=== PATIENT | female | born 1935 | race Caucasian/White ===

== ENCOUNTER 2018-12-29 17:55 | Inpatient (IN) | payer OTHER ==
[~2018-12-29] VITALS: Ht 147.3 cm; Wt 54.6 kg
--- NOTE | 2018-12-29 18:00 | NUR ---
Patient to ER bed 07 to gown for evaluation. Side rails up.
[2018-12-29 18:12] VITALS: BP_SYST 147
[2018-12-29] MEDS ORDERED: MORPHINE 2 MG/ML INJ. SYRINGE IVP ONE ×3 (18:15→23:15)
--- NOTE | 2018-12-29 18:15 | NUR ---
ER at bedside examining patient.
--- NOTE | 2018-12-29 18:15 | NUR ---
Patient arrived via BLS ambulance for c/c of left hip pain. Patient AAOx4, and laying in semi prone position. Patient states she was walking and holding a plate, she went to turn and her foot got stuck. Patient states she fell, no head strike, and no LOC. Patient states pain is 10/10 to left hip and left shoulder soreness. Decreased range of motion to left hip. +2 PT and DP pulses noted to affected leg. Capillary refill <3 seconds. Patient has no rotation of the extremity noted, patient has no bruising noted. Pain with palpation. Patient is calm and cooperative. Patient changed into a gown, and placed on playground monitor.
--- NOTE | 2018-12-29 18:30 | NUR ---
# 20 gauge angiocath placed to left forearm. Use of asceptic technique. Opsite placed over site. Blood return noted. Unable to draw blood. Flushed with 10 cc of normal saline. No evidence of infiltration noted. Patient tolerated well.
--- NOTE | 2018-12-29 19:15 | NUR ---
Care endorsed to BLANCO Colunga. Per MD Cartagena, patient has hip fracture.
--- NOTE | 2018-12-29 19:15 | NUR ---
Pt AAOx3, VSS. No needs verbalized at this time. Pts daughter at bedside.
[2018-12-29 20:11] LABS: BASOPHILS # (AUTO) 0.1 K/uL (0.0-0.2); BASOPHILS % (AUTO) 0.4 % (0.0-2.0); EOSINOPHILS # (AUTO) 0.2 K/uL (0.0-0.4); EOSINOPHILS % (AUTO) 1.4 % (0.0-4.0); HEMATOCRIT 42.6 % (36-48); HEMOGLOBIN 14.4 g/dL (12.0-16.0); LYMPHOCYTES # (AUTO) 1.5 K/uL (1.0-5.5); LYMPHOCYTES % (AUTO) 12.7 % (20.5-51.5); MEAN CORPUSCULAR HEMOGLOBIN 31 pg (27-31); MEAN CORPUSCULAR HGB CONC 34 % (32-36); MEAN CORPUSCULAR VOLUME 91 fL (79.0-98.0); MONOCYTES # (AUTO) 0.6 K/uL (0.0-1.0); MONOCYTES % (AUTO) 4.9 % (1.7-9.3); NEUTROPHILS # (AUTO) 9.7 K/uL (1.8-7.7); NEUTROPHILS % (AUTO) 80.6 % (40.0-70.0); PLATELET COUNT (AUTO) 205 K/uL (130-430); RED CELL DISTRIBUTION WIDTH 13.2 % (9.0-15.0)
[2018-12-29 20:22] LABS: ANION GAP 10 (5-15); CALCIUM 9.5 mg/dL (8.4-11.0); CHLORIDE 103 mmol/L (98-107); CREATININE 0.93 mg/dL (0.55-1.30); GLUCOSE 99 mg/dL (70-99); POTASSIUM 3.8 mmol/L (3.5-5.1); SODIUM SERUM 138 mmol/L (136-145); UREA NITROGEN, BLOOD 19 mg/dL (8-21)
[2018-12-29 20:26] LABS: PROTHROMBIN TIME 10.5 SECS (9.5-12.5)
[2018-12-29 20:28] LABS: ALANINE AMINOTRANSFERASE 18 U/L (12-78); ALBUMIN 3.6 g/dL (3.4-4.8); ASPARTATE AMINOTRANSFERASE 26 U/L (10-37); TOTAL BILIRUBIN 0.5 mg/dL (0.0-1.0)
--- NOTE | 2018-12-29 20:30 | NUR ---
Pt resting quietly, even and non-labored respirations, VSS, NAD. No needs verbalized at this time.
--- NOTE | 2018-12-29 22:00 | NUR ---
Pt alert and responsive, even and non-labored respirations, VSS, NAD. No needs verbalized at this time. Daughter at bedside.
--- NOTE | 2018-12-30 00:51 | NUR ---
Pt c/o Left hip pain 08/14. Pt medicated with Morphine.
--- NOTE | 2018-12-30 01:00 | NUR ---
Pts daughter states that pt takes Plavix for A-fib, but dosage unknown. She states that she will bring in home medication list tomorrow morning.
--- NOTE | 2018-12-30 01:10 | NUR ---
# 16 FR Muñoz catheter with use of sterile technique. Immediate return of 200 cc clear yellow urine noted. Bedside drainage bag placed below level of bladder. Urine sample collected and sent to lab. Pt tolerated procedure fair. Patient unable to toilet self r/t left hip fracture.
--- NOTE | 2018-12-30 01:39 | NUR ---
Patient will be admitted to care of Dr. Rae. Admitted to Tele unit. Will go to room 124A. Belongings list completed. Complete and up to date summary report printed. Report to be given at bedside with opportunity for questions.
--- NOTE | 2018-12-30 02:05 | NUR ---
Pt c/o Left Hip pain at 08/14. Pt to be medicated with Morphine 1 mg IVP per admit orders prior to taking to Tele unit.
[2018-12-30] MEDS: MORPHINE 2 MG/ML INJ. SYRINGE IVP PRN ×2 (02:08→20:37)
[2018-12-30 02:21] LABS: BILIRUBIN,URINE NEGATIVE (NEGATIVE); CLARITY/URINE CLEAR (CLEAR); COLOR,URINE YELLOW (YELLOW); GLUCOSE,URINE NEGATIVE (NEGATIVE); KETONES,URINE 1+ (NEGATIVE); LEUKOCYTE ESTERASE ,URINE NEGATIVE (NEGATIVE); NITRITE, URINE NEGATIVE (NEGATIVE); PROTEIN URINE NEGATIVE (NEGATIVE); UROBILINOGEN,URINE 0.2 (0.2-1.0)
[2018-12-30 02:25] LABS: BLOOD, URINE TRACE (NEGATIVE)
[2018-12-30 02:45] VITALS: BP_SYST 124
--- NOTE | 2018-12-30 02:45 | NUR ---
pt.arrived via the er-dept.dtr. accompanied the pt.pt.presents fx;lt.hip.pt.presents colby cath.pt.presents iv access;intact; patent. pt.presents language barrier;extant;indonesian:pt's primary language.diet status;regular.no requests per pt.posited@this hour. general status stable.respiratory status stable;unlabored@room air;02-sat%=98%.i have assessed the v/s;values w/in normal limits. pt.presents colby cath.intact;patent;urine content present.call light/telephone placed w/in the reach of the pt.
[2018-12-30] MEDS: HEPARIN SODIUM,PORCINE 5000 UNITS/ML VIAL SUBCUT SCH ×3 (03:00→20:31)
--- NOTE | 2018-12-30 03:07 | NUR ---
Consultation Paged Reason for Consultation: Left Hip Fracture Was consult called: Y Person who was notified: Hannah Consulting Physician: Dr. Carrero (Dr. Rodriguez is precision assembler bench) Litigation Legal Secretary Ordering Physician: Dr. Rae
[2018-12-30 03:21] LABS: BACTERIA,URINE FEW /HPF (None Seen); WBC,URINE 0-3 /HPF (0-3)
[2018-12-30] MEDS: NACL 0.9% 1,000 ML IV SCH ×2 (03:43→17:30)
--- NOTE | 2018-12-30 04:00 | NUR ---
pt.assessed.pt.presents quiescent affect;calm.no requests posited@this hour.pt.repositioned.i have apprised the pt.that morphine is ordered and is due @0600a but, if required, i would page the md.pt.stated she is comfortable.i have completed the admission data collection;dtr has assisted w/providing pt's' responses:data/info collection..i have initiated the administration of iv fluids;heparin has been ordered.i am to hole the heparin;pt.possible surgery:12/30/18;truong is consulted for the case.general status stable.respiratory status stable;unlabored.call light.telephone placed w/in reach of the pt.
--- NOTE | 2018-12-30 04:04 | NUR ---
Consultation Paged Reason for Consultation: A-Fib Was consult called: Y Person who was notified: Hannah Consulting Physician: Dr. Bourne [employer] Architect Ordering Physician: Dr. Rae
--- NOTE | 2018-12-30 06:00 | NUR ---
pt.assessed.pt.presents quiescent affect;calm,somnolent.no c/o pain,nausea.iv fluids infusing.colby cath intact;patent;urine content present. no requests posited@this hour.pt.repositioned.general status stable.respiratory status stable;unlabored.i have collected the mrsa;nares sample.call light/telephone w/in the reach of the pt.
[2018-12-30] MEDS ORDERED: MORPHINE 2 MG/ML INJ. SYRINGE IVP PRN (06:30)
[2018-12-30] MEDS ORDERED: ONDANSETRON HCL 4 MG/2 ML VIAL IVP PRN (06:30)
[2018-12-30] MEDS ORDERED: MAGNESIUM SULFATE 50 ML IV PRN (06:30)
[2018-12-30] MEDS ORDERED: MUPIROCIN 2% TOPICAL OINTMENT 22 GM NS PRN (06:30)
[2018-12-30] MEDS ORDERED: DOCUSATE SODIUM 100 MG CAPSULE PO PRN (06:30)
[2018-12-30] MEDS ORDERED: POTASSIUM CHLORIDE 20 MEQ TAB.PRT.SR PO PRN (06:30)
[2018-12-30] MEDS ORDERED: LORazepam 2 MG/ML VIAL IVP PRN (06:30)
[2018-12-30] MEDS ORDERED: ZOLPIDEM TARTRATE 5 MG TABLET PO PRN (06:30)
[2018-12-30] MEDS ORDERED: ACETAMINOPHEN 325 MG TABLET PO PRN (06:30)
--- NOTE | 2018-12-30 07:45 | NUR ---
INITIAL NOTES PT IS SLEEPING AND EASILY TO BE AROUSED, TURKISH SPEAKING, ALERT AND ORIENTEDX4, COMPLAINED ON LEFT HIP ON MOVEMENT, IN RA, NO SOB, SR ON RN CASE MANAGER, DTR, FARRAH, AT BEDSIDE AND UPDATED WITH PLAN OF CARE. ENCOURAGED PT TO USE CALL LIGHT NEEDED
[2018-12-30 08:00] VITALS: BP_SYST 123
--- NOTE | 2018-12-30 08:00 | NUR ---
ROUND DR WATKINS IS ASSESSING PT AT BEDSIDE
--- NOTE | 2018-12-30 09:30 | NUR ---
HOME MEDS RECEIVED LIST ON HOME MEDICATION FROM PT'S SON, TESFAYE.
--- NOTE | 2018-12-30 09:45 | NUR ---
MD CARISA MORA IS ASSESSING PT AT BEDSIDE Addendum: 12/30/18 at 1645 by Henok Nguyen RN INCORRECT PT
--- NOTE | 2018-12-30 10:00 | NUR ---
DTR PT'S DTR IS HERE AND UPDATED WITH PT STATUS AND PLAN OF CARE Addendum: 12/30/18 at 1645 by Henok Nguyen RN INCORRECT PT
[2018-12-30] MEDS ORDERED: APIX2.5T PO (10:41)
[2018-12-30] MEDS ORDERED: LEVO125T PO (10:41)
[2018-12-30] MEDS ORDERED: LATA7.5D OP (10:41)
[2018-12-30] MEDS ORDERED: LOVA40TA75 PO (10:41)
[2018-12-30] MEDS ORDERED: TIMO5DRO15 EACH EYE (10:41)
[2018-12-30] MEDS ORDERED: ALEN10TA7 PO (10:41)
[2018-12-30] MEDS ORDERED: BACL10TA PO (10:41)
[2018-12-30] MEDS ORDERED: VALS80TA2 PO (10:41)
--- NOTE | 2018-12-30 10:53 | NUR ---
DRESSING CHANGES COMPLETED. APPLIED NEW FOAM DRESSING ON THE AFFECTED AREA Addendum: 12/30/18 at 1646 by Henok Nguyen RN INCORRECT PT
--- NOTE | 2018-12-30 12:00 | NUR ---
ROUNDING, VSS NO SOB, PT'S JUST CAME IN TO VISIT PT.
[2018-12-30 12:45] VITALS: BP_SYST 123
--- NOTE | 2018-12-30 13:30 | NUR ---
ROUNDING PT IS SLEEPING, FAMILY MEMBER AT BEDSIDE, CALL LIGHT WITHIN REACH
--- NOTE | 2018-12-30 14:45 | NUR ---
PAGEBairon LEDBETTER PAGED DR OLIVERA TO FOLLOW UP CONSULT.
--- NOTE | 2018-12-30 15:00 | NUR ---
rounding DR ARTEAGA IS ASSESSING PT AT BEDSIDE
[2018-12-30 16:00] VITALS: BP_SYST 118
--- NOTE | 2018-12-30 18:53 | NUR ---
CLOSING NOTES PT REMAINS STABLE, NO SOB, DENIES ANY PAIN, FAMILY MEMBERS AT BEDSIDE, CALL LIGHT WITHIN REACH
--- NOTE | 2018-12-30 19:20 | NUR ---
initial notes: pt is on bed, awake, alert, oriented x 3. not distress, complain of pain to left hip 10/10, vital sign are stable, ivf infusing to left fore arm gauge 20- intact and patent. pt skin breakdown. pt has colby catheter- urine bag is lower than body- draining to yellow urine. discuss to pt and family plan of care they verbalized understanding. needs attended. call light in reach. safety on. will follow-up.
[2018-12-30 20:20] VITALS: BP_SYST 128
[2018-12-30 20:52] VITALS: BP_SYST 105
--- NOTE | 2018-12-30 22:00 | NUR ---
pt is rearresting bedpan for bm. pt is unable to turn or lift her buttocks due to pain. explain to pt she also needs to turn side to side. pt unable to move side to side due pain. pt is help by family member and balling machine operator. needs attended. will ofollow-up.
--- NOTE | 2018-12-31 | NUR ---
pt is sleeping, no sign of pain. stable, ivf infusing well.call light in reach. will follow-up.
[2018-12-31] MEDS: MORPHINE 2 MG/ML INJ. SYRINGE IVP PRN ×3 (01:21→21:32)
--- NOTE | 2018-12-31 01:30 | NUR ---
pt is sleeping, wakes up when check and complain of apin 10/10, stable. not distress. prn pain medication given, educated. needs attended. call light in reach. side rails up.low bed position. will follow-up.
--- NOTE | 2018-12-31 03:30 | NUR ---
sleeping, no pain. no sob, stable,ivf infusing well. call light in reach, side rails up. low bed position. will folow-up.
[2018-12-31] MEDS: NACL 0.9% 1,000 ML IV SCH (05:12)
--- NOTE | 2018-12-31 06:00 | NUR ---
sleeping, no sign of pain, no sob. stable. ivf infusing well. colby catheter draining well. call light in reach.side rails up, low bed position. will follow-up.
[2018-12-31 06:34] LABS: BASOPHILS # (AUTO) 0.1 K/uL (0.0-0.2); BASOPHILS % (AUTO) 0.6 % (0.0-2.0); EOSINOPHILS # (AUTO) 0.5 K/uL (0.0-0.4); EOSINOPHILS % (AUTO) 4.4 % (0.0-4.0); HEMATOCRIT 38.3 % (36-48); HEMOGLOBIN 12.9 g/dL (12.0-16.0); LYMPHOCYTES # (AUTO) 2.1 K/uL (1.0-5.5); LYMPHOCYTES % (AUTO) 17.1 % (20.5-51.5); MEAN CORPUSCULAR HEMOGLOBIN 30 pg (27-31); MEAN CORPUSCULAR HGB CONC 34 % (32-36); MEAN CORPUSCULAR VOLUME 90 fL (79.0-98.0); MONOCYTES # (AUTO) 1.1 K/uL (0.0-1.0); MONOCYTES % (AUTO) 9.1 % (1.7-9.3); NEUTROPHILS # (AUTO) 8.3 K/uL (1.8-7.7); NEUTROPHILS % (AUTO) 68.8 % (40.0-70.0); PLATELET COUNT (AUTO) 180 K/uL (130-430); RED BLOOD CELL COUNT(AUTO) 4.24 MIL/uL (4.2-6.2); RED CELL DISTRIBUTION WIDTH 13.1 % (9.0-15.0); WHITE BLOOD COUNT (AUTO) 12.1 K/uL (4.8-10.8)
[2018-12-31 06:51] LABS: ANION GAP 4 (5-15); CALCIUM 7.7 mg/dL (8.4-11.0); CHLORIDE 103 mmol/L (98-107); CREATININE 0.83 mg/dL (0.55-1.30); GLUCOSE 97 mg/dL (70-99); POTASSIUM 3.7 mmol/L (3.5-5.1); SODIUM SERUM 132 mmol/L (136-145); UREA NITROGEN, BLOOD 16 mg/dL (8-21)
--- NOTE | 2018-12-31 07:25 | NUR ---
closing: pt is wakes up. complain of little pain, stable. ivf infusing well. colby catheter draining well. needs attended the whole shift, report given to ARUNA.
--- NOTE | 2018-12-31 08:00 | NUR ---
Opening Notes Patient received lying comfortably in her bed with respiration even and unlabored. Alert, awake and verbally responsive. Verbalized pain to left hip but tolerable, refused pain medication at this time. Discussed plan of care and using of call light, patient verbalized understanding. IVF infusing well, Muñoz catheter in place and intact draining yellow urine to urine bag via gravity. Fall precaution observed. Bed alarm on, bed at lowest position. Call light within the reach. Will continue to monitor
[2018-12-31 08:15] VITALS: BP_SYST 133
--- NOTE | 2018-12-31 09:50 | NUR ---
Dr. Bourne Rounds Seen and examined by Dr. Bourne, will follow-up for any new orders.
--- NOTE | 2018-12-31 10:34 | NUR ---
Nutrition Update Jim Scale 18 noted. Pt admitted for L hip fracture. Diet: regular BMI: 25.2 kg/m2 RD to follow per nutrition care standards.
--- NOTE | 2018-12-31 10:40 | NUR ---
Dr. Rae Rounds, Transfer order Seen and examined by Dr. Rae, with new order to transfer patient to contracted hospital per insurance policy, son at bedside, will follow-up for any new orders.
[2018-12-31] MEDS: HEPARIN SODIUM,PORCINE 5000 UNITS/ML VIAL SUBCUT SCH ×2 (11:00→21:41)
--- NOTE | 2018-12-31 12:30 | NUR ---
RN ROUNDS Patient currently lying comfortably in her bed with respiration even and unlabored. Verbalized pain to her left hip, offered pain medicine but patient refused. Call light within the reach.
[2018-12-31 12:32] VITALS: BP_SYST 144
--- NOTE | 2018-12-31 13:52 | NUR ---
Dc Planning: Per cyril Mcgraw at [facility]: arranging transfer pt to [facility]. She plans for [facility], pending bed assignment. She will be calling RN on duty to give the transfer instruction. Lucien is expecting the transfer this PM. The transfer is via [facility], will call status, booking trip # [phone], tel # [phone]. BLANCO Michael/CYRIL. US Majo and BLANCO Hsu made aware. Addendum: 12/31/18 at 1437 by Fernanda Orellana RN DC PLANNING: SPOKE WITH LUCIEN (CYRIL @ [facility]) @ EXT. [phone]. PATIENT IS PLAN TO BE TRANSFERRED TO [facility]. PENDING ROOM NUMBER. ACCEPTING HOSPITALIST IS MARGOT LEON, ACCEPTING ORTHOPEDIC SURGEON IS DR. DILIP HUANG. PER LUCIEN, TRANSPORTATION IS ON WILL CALL. CYRIL MCGRAW WILL CALL BACK WITH ROOM NUMBER ONCE AVAILABLE. CYRIL CONTACTED PATIENT'S SON (TESFAYE LYLES) @ [phone] AND INFORMED HIM OF THE DC PLAN TO TRANSFER PATIENT TO [facility]. PATIENT'S SON AGREED TO THE TRANSFER. WILL UPDATE HIM WITH TRANSFER TIME AND BED. Addendum: 12/31/18 at 1505 by Fernanda Orellana RN RECEIVED A CALL FROM LUCIEN @ [facility]. PATIENT WILL BE TRANSFERRED TO: [facility] ROOM 418-A FOR REPORT CALL P TRANSPORTATION VIA [employer] @ TRIP # [id number] LOOP PULLER TIME IS AT 6PM ACCEPTING MD: MARGOT OLVERA SURGEON: DILIP LOWE Addendum: 12/31/18 at 1542 by Fernanda Orellana RN CM SPOKE WITH PATIENT'S SON (TESFAYE LYLES) @ BEDSIDE AND INFORMED HIM OF THE DC TO CONTRACTED HOSPITAL ([facility]). LOOP PULLER TIME IS AT 6PM. PATIENT'S SON AGREED TO THE TRANSFER/DISCHARGE.
--- NOTE | 2018-12-31 14:35 | NUR ---
RN ROUNDS Patient lying in bed, alert, awake and verbally responsive. Respiration even and unlabored. IVF infusing well, offered pain medication, patient refused and said she will have it before transfering. Call light within the reach.
--- NOTE | 2018-12-31 16:30 | NUR ---
RN ROUNDS Patient resting well, no moaning or grimacing noted. Morphine was given, tolerating well. Son at bedside. Call light within the reach.
[2018-12-31 16:41] VITALS: BP_SYST 135
[2018-12-31] MEDS ORDERED: ATORVASTATIN 10 MG TABLET PO SCH (18:00)
--- NOTE | 2018-12-31 19:45 | NUR ---
Report to [facility] and EMT given SBAR report given to [facility], spoke with RN YARELIS regarding patient's transfer, EMT at unit report given. Patient remain to be alert, awake and verbally responsive. Respiration even and unlabored. Call light within the reach. Patient requesting for pain medication, will endorse to the next shift.
--- NOTE | 2018-12-31 20:15 | NUR ---
AMBULANCE AMBULANCE INFORMED CHARGE NURSE THAT THEY HAVE TO LEAVE FOR EMERGENCY DISPATCH. THEY WILL CALL US FOR REPLACEMENT.
--- NOTE | 2018-12-31 20:29 | NUR ---
NEW PICK-UP TIME RECEIVED A CALL FROM [facility] ([phone]) BJORN BAÑUELOS @ 1322. SPOKE WITH FARSHAD
[2018-12-31] MEDS ORDERED: TIMOLOL MALEATE 0.5% OPHTHALMIC DROPS 5 ML EACH EYE SCH (21:00)
[2018-12-31 21:01] VITALS: BP_SYST 138
[2018-12-31 21:09] VITALS: BP_SYST 138
--- NOTE | 2018-12-31 22:59 | NUR ---
PAIN MGT PATIENT MEDICATED WITH MORPHINE 2 MG FOR C/O LEFT HIP/THIGH PAIN 11/14. VITAL SIGNS STABLE. SAFETY PRECAUTIONS IN PLACED. SON AT BEDSIDE. Addendum: 12/31/18 at 2332 by Colleen Golden RN CORRECT TIME 2131
--- NOTE | 2018-12-31 23:40 | NUR ---
DISCHARGE NEW AMBULANCE PROFESSOR OF ENVIRONMENTAL STUDIES HERE REPORT GIVEN TO AMBULANCE ATTENDANTS. PATIENT LEFT FACILITY IN STABLE CONDITION ACCOMPANIED BY SON AND AMBULANCE PERSONNEL.
[2019-01-01] MEDS ORDERED: LEVOTHYROXINE SODIUM 0.125 MG TABLET PO SCH (07:00)
[2019-01-01] MEDS ORDERED: LATANOPROST 2.5 ML DROPS (XALATAN) OP SCH (09:00)
== END 2018-12-31 23:40 | disposition short-term general hospital (02) | DRG 536 ==
LOC: SED 17:55 → STU 12-30 00:06
PROVIDERS: ADMIT General Practice; ATTEND General Practice
DX: S72.145A Nondisplaced intertrochanteric fracture of left femur, initial encounter for closed fracture (principal); I48.20 Chronic atrial fibrillation, unspecified; E78.5 Hyperlipidemia, unspecified; H40.9 Unspecified glaucoma; I10 Essential (primary) hypertension; S72.91XA Unspecified fracture of right femur, initial encounter for closed fracture; I25.10 Atherosclerotic heart disease of native coronary artery without angina pectoris; W01.0XXA Fall on same level from slipping, tripping and stumbling without subsequent striking against object, initial encounter; Y93.89 Activity, other specified; Y92.89 Other specified places as the place of occurrence of the external cause; Y99.8 Other external cause status; Z79.01 Long term (current) use of anticoagulants
CPT/HCPCS: 36415; 70450-TC; 72170-TC; 73552; 73700-TC; 80048; 80053; 81000-TC; 82550-TC; 83036; 83735-TC; 85025; 85610-TC; 85730-TC; 87081; 93005; 93306; 96374; 96376; 99285; G0378; J1644; J2270; J7030